=== PATIENT | female | born 2000 | race Caucasian/White ===

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

== ENCOUNTER 2023-03-29 09:00 | Emergency (ER) | payer OTHER, SELFPAY ==
--- NOTE | ~2023-03-29 | XR_ITS ---
EXAMINATION: XR tibia fibula RT 2V DATE: 03/29/2023 10:00 INDICATION: Persistent infiltrate right lower leg pain and bruising post fall one week prior TECHNIQUE: AP and lateral views of the right tibia and fibula were obtained. COMPARISON: None. FINDINGS: Alignment is normal. No fracture. Joint spaces are normal. Soft tissues are unremarkable. No ankle gilbert int effusion. IMPRESSION: 1. Negative right tibia/fibula radiographs. 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
[2023-03-29 09:23] VITALS: BP 112/77; PULSE 85; RESP 16; TEMP 36.4; O2SAT 100
--- NOTE | 2023-03-29 09:44 | ED.GENADULT ---
HPI - General Adult General Chief complaint: Extremity Injury, Lower Stated complaint: right leg injury Time Seen by Provider: 03/29/23 09:44 Source: patient, RN notes reviewed and old records reviewed Mode of arrival: ambulatory Limitations: no limitations History of Present Illness HPI narrative: 22-year-old female presents to the [facility] with complaints of right anterior lower leg pain since Sunday. Patient states that she was moving her child toddler bed when she tripped down a couple of stairs landing on her boyle. Bruising and a small abrasion noted Has been taken Tylenol Related Data Allergies Allergy/AdvReac Type Severity Reaction Status Date / Time cheese Allergy Unknown extreme Verified 03/14/23 14:31 constipation fluoxetine AdvReac Intermediate headaches Verified 03/14/23 14:31 Review of Systems Review of Systems: All systems reviewed & are unremarkable except as noted in HPI and below Constitutional: Constitutional: Reports no additional constitutional complaints Eyes: Eyes: Reports no additional eye complaints ENT: Reports system reviewed and no additional complaints, except as documented Cardiovascular: Cardiovascular: Reports no additional cardiovascular complaints, Denies chest pain and Denies dyspnea Respiratory: Respiratory: Reports no additional respiratory complaints, Denies chest congestion, Denies cough and Denies dyspnea Gastrointestinal: Gastrointestinal: Reports no additional gastrointestinal complaints, Denies abdominal pain, Denies nausea and Denies vomiting Musculoskeletal: Musculoskeletal: Reports as per HPI Integumentary/Breasts: Skin/Breast: Reports system reviewed and no additional complaints, except as docu Neurologic: Reports system reviewed and no additional complaints, except as documented Psychiatric: Psychiatric: Reports no additional psychiatric complaints Allergic/Immunologic: Allergic/Immunologic: Reports no additional allergic/immunologic complaints PMF Past Medical History Medical History Anxiety Depression Family History Family History Other No pertinent family history Social History Social History Smoking status: Never smoker Second hand tobacco smoke exposure: Yes Alcohol intake: never Substance use: never Spiritual care concerns: No Comments At the time of my signature, I reviewed and agree with the nursing past medical, surgical, social, and family history. There is no relevant family history pertinent to the patient complaint. Exam Const: General: cooperative, healthy appearing, comfortable, no acute distress, well developed, alert and well nourished Nutritional Appearance: well nourished Orientation/consciousness: patient oriented x3 Limitations: no limitations HENMT: Head: normal to inspection Ears: hearing grossly normal bilaterally and external ears normal Face/Nose/Sinus: Normal external nose present, Normal nares present, Normal nasal mucous membranes and turbinates present, normal facial exam and face symmetric Face and sinus: normal facial exam and face symmetric Eyes: General: appearance normal, both eyes and all related structures Alignment and Position: alignment normal Periorbital: periorbital findings normal Pupils: Equal, round and reactive pupils present EOM: EOMs intact bilaterally Neck: Neck: normal visual inspection, full ROM, no lymphadenopathy and no meningeal signs Chest: Chest palpation & inspection: normal inspection of the chest Resp: Effort & Inspection: normal respiratory effort and able to speak in complete sentences Cardio: Rate: regular rate Rhythm: regular rhythm Back/Spine/Pelvis: Cervical Spine: cervical ROM normal Skin: General skin exam: normal color and no rashes or lesions noted Lesions: no lesions Rashes: no rashes Oth
== END 2023-03-29 10:36 | disposition home or self-care (01) ==
PROVIDERS: Emergency Provider Nurse Practitioner; PCP Family Medicine
DX: S80.11XA Contusion of right lower leg, initial encounter (principal); W10.9XXA Fall (on) (from) unspecified stairs and steps, initial encounter
CPT/HCPCS: 73590; 99213; G0463

== ENCOUNTER 2023-09-15 19:15 | Emergency (ER) | payer OTHER, SELFPAY ==
--- NOTE | 2023-09-15 19:23 | ED.GENADULT ---
HPI - General Adult General Chief complaint: Back Pain/Injury Stated complaint: Back Injury Time Seen by Provider: 09/15/23 19:24 Source: patient, RN notes reviewed and old records reviewed Mode of arrival: ambulatory Limitations: no limitations History of Present Illness HPI narrative: 23-year-old female to [facility] for complaint of low back pain. 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 Patient went to emergency department and received an x-ray. Patient was discharged and advised to treat with [id number] medication. Patient states she was seen by work comp doctor on the and given a prescription for a muscle relaxer which would cost patient 180 dollars out of pocket. Patient states that she cannot afford the prescription and is requesting a different prescription. patient in no acute distress. Patient requesting work note. Related Data Allergies Allergy/AdvReac Type Severity Reaction Status Date / Time fluoxetine AdvReac Intermediate Abdominal Verified 09/15/23 19:41 Pain Review of Systems Review of Systems: All systems reviewed & are unremarkable except as noted in HPI and below Constitutional: Constitutional: Reports no additional constitutional complaints Eyes: Eyes: Reports no additional eye complaints ENT: Reports system reviewed and no additional complaints, except as documented Cardiovascular: Cardiovascular: Reports no additional cardiovascular complaints, Denies chest pain and Denies dyspnea Respiratory: Respiratory: Reports no additional respiratory complaints, Denies cough and Denies dyspnea Musculoskeletal: Musculoskeletal: Reports as per HPI and Reports back pain Neurologic: Reports system reviewed and no additional complaints, except as documented Psychiatric: Psychiatric: Reports no additional psychiatric complaints PMFSH Past Medical History Medical History Anxiety Depression Family History Family History Other No pertinent family history Social History Social History Smoking status: Never smoker Second hand tobacco smoke exposure: Yes Alcohol intake: never Substance use: never Spiritual care concerns: No Comments At the time of my signature, I reviewed and agree with the nursing past medical, surgical, social, and family history. There is no relevant family history pertinent to the patient complaint. Exam Const: General: cooperative, healthy appearing, comfortable, no acute distress, alert and well nourished Nutritional Appearance: well nourished Orientation/consciousness: patient oriented x3 Limitations: no limitations HENMT: Head: normal to inspection Ears: external ears normal Face/Nose/Sinus: Normal external nose present, Normal nares present, normal facial exam, No erythema and No edema Face and sinus: normal facial exam, no erythema and no edema Mouth: Yes Normal oral and palatal mucosa present Eyes: General: appearance normal, both eyes and all related structures Neck: Neck: normal visual inspection, full ROM and no meningeal signs Lymphatic: no lymphadenopathy noted and no lymphedema noted Chest: Chest palpation & inspection: normal inspection of the chest Resp: Effort & Inspection: normal respiratory effort and able to speak in complete sentences Cardio: Jugular venous distension: no JVD Rate: regular rate Rhythm: regular rhythm Back/Spine/Pelvis: Cervical Spine: cervical ROM normal Thoracic/Lumbar Spine: other ( Lumbar back pain with movement) Skin: General skin exam: normal color, no rashes or lesions noted and turgor normal Neuro: General: patient oriented x3, gait normal, moves all extremities and no meningeal signs Speech: normal speech Gait exam (Neuro): Normal gait present Extrem: General: normal to in
[2023-09-15 19:24] VITALS: BP 109/60; PULSE 110; RESP 16; TEMP 36.9; O2SAT 99
[2023-09-15] MEDS: KETOROLAC (*BKC) 60 MG/2 ML VIAL IM (19:47)
== END 2023-09-15 20:02 | disposition home or self-care (01) ==
PROVIDERS: Emergency Provider Nurse Practitioner Family; PCP Family Medicine
DX: S39.012A Strain of muscle, fascia and tendon of lower back, initial encounter (principal); X50.0XXA Overexertion from strenuous movement or load, initial encounter; Y99.0 Civilian activity done for income or pay
CPT/HCPCS: 96372; 99213; G0463; J1885

== ENCOUNTER 2024-01-26 10:15 | Emergency (ER) | payer OTHER, SELFPAY ==
[2024-01-26 10:20] VITALS: BP 139/65; PULSE 70; RESP 20; TEMP 36.4; O2SAT 100
--- NOTE | 2024-01-26 10:33 | ED.URI ---
HPI - URI/Sore Throat General Chief Complaint: Upper Respiratory Infection Stated Complaint: strep/flu symptoms History of Present Illness HPI Narrative: Patient presents with a 6 day history of bilateral ear pressure and discomfort sore throat nasal congestion and cough. Patient is taking [id number] cold and flu medications for her symptoms. Patient denies any fever no body aches no shortness of breath no chest pain. Patient does admit to vaping on a daily basis and states she does have a productive cough at times. Related Data Allergies Allergy/AdvReac Type Severity Reaction Status Date / Time fluoxetine AdvReac Intermediate Abdominal Verified 01/26/24 10:31 Pain Review of Systems Review of Systems: CONSTITUTIONAL: Denies chills, or sweats. Reports fever and generalized body aches EYES: Denies visual changes, redness, or discharge. ENT: Denies otalgia. Reports nasal congestion runny nose and sore throat CARDIOVASCULAR: Denies chest pain, palpitations, or edema. RESPIRATORY: Denies dyspnea. Reports occasional cough GASTROINTESTINAL: Denies abdominal pain, nausea, vomiting, or diarrhea. GENITOURINARY: Denies dysuria or hematuria. SKIN: Denies rash or itching. MUSCULOSKELETAL: Denies back pain, joint pain, or myalgia. Reports generalized body aches NEUROLOGIC: Denies headache, numbness, or weakness. PSYCHIATRIC: Denies anxiety or depression. PMFSH Past Medical History Medical History Anxiety Depression Family History Family History Other No pertinent family history Social History Social History Smoking status: Never smoker Second hand tobacco smoke exposure: Yes Alcohol intake: never Substance use: never Spiritual care concerns: No Comments At time of signature, agree with nursing past medical, surgical, social and family history. There is no relevant family history pertinent to the presenting complaint Exam Narrative: The patient is a well-developed, well-nourished in no acute distress. SKIN: Skin is warm and dry without erythema, swelling or exudate. There is good turgor. No tenting. HEAD: Atraumatic. Normocephalic. No temporal or scalp tenderness. EYES: Moist and bright. Sclera and conjunctivae normal. No discharge. PERRLA. Extraocular motions intact. Gross visual acuity intact. EARS: Pinna is normal shape and contour. Clear external auditory canals. Left TM cloudy with moderate erythema to canal right TM dull no erythema to canal. Bilateral cerumen noted no gross hearing deficit. NOSE: pink, moist mucosa with good air movement. Clear rhinorrhea without nasal flaring. Septum midline. Mouth: moist mucous membranes. THROAT; mild erythema noted to posterior oropharynx with moderate postnasal drainage. Without exudate or ulceration.. Uvula midline. Normal movement of soft palate. NECK: Supple and nontender with full range of motion without discomfort. No meningeal signs. LUNGS: Equal and bilateral breath sounds without wheezes, rales or rhonchi. CHEST: The chest wall is without retractions or use of accessory muscles. HEART: Has a regular rate and rhythm without murmur, gallops, click or rub. ABDOMEN: Soft, nontender with positive active bowel sounds. No rebound tenderness. EXTREMITIES: Without cyanosis, clubbing or edema. Equal 2+ distal pulses and 2 second capillary refill noted. NEUROLOGIC: alert, active, . The patient moves all extremities with normal muscle strength. Normal muscle tone is noted. Normal coordination is noted. NO focal neurological findings noted. Course Course Level of Care: Express Care Visit Discharge Plan Discharge Clinical Impression: Otitis media of right ear, Upper respiratory infection Patient Disposition: Home, Self-Care Condition: Stable Instructions: Antibiotic Form Additional Instructions: *Throw away your current toothbrush and begin using a new toothbrush in 48 hours in order to prevent re-infection. If anyone else's toothbrush is stored near yours, they should also throw away their current toothbrush and begin using a new one. *Sanitize all reusable water bottles. *Do not share items with others. *Wash your hands often. Supportive care/Soothing measures/Pain relief: *Avoid cigarette smoke (including secondhand smoke) *Avoid acidic foods and beverages *Eat a soft diet for the next 3-4 days *Salt water gargles may alleviate some of the throat discomfort. Most recipes call for ? to ? teaspoon of salt per 8 ounces (approximately 240 mL) of warm water. *You can take tylenol or ibuprofen per the package instructions for pain/fever. *Sipping cold or warm beverages (eg, tea with honey or lemon) *Eat cold or frozen desserts (eg, ice cream, popsicles) *Sucking on ice *Sucking on hard candy Viruses are everywhere and can spread like wildfire. Sx can last up to 3-4 weeks. Treatment is aimed toward your specific symptoms. You must treat your symptoms in order to feel better while the virus runs it's course. Increase fluids especially water. Do not share items with others. You can take Tylenol or ibuprofen per the package instructions for pain/fever. Wash your hands as often as possible. Purchase and begin using an over the counter antihistamine/decongestant combo such as Zyrtec D, Linda D, Claritin D as well as Flonase nasal spray per the package instructions. Salt water gargles may alleviate some of your throat discomfort. Go to the ER if your symptoms become worse of if ANY new symptoms develop Prescriptions: New albuterol sulfate 90 mcg/actuation HFA aerosol inhaler 2 puff inhalation QID PRN (Reason: shortness of breath or wheezing) 30 Days Qty: 8.5 0RF fluticasone propionate 50 mcg/actuation spray,suspension 2 spray NASAL DAILY 14 Days Qty: 9.9 0RF Rx Instructions: administer into each nostril azithromycin [Zithromax Z-David] 250 mg tablet See Rx Instructions .ROUTE .COMPLEX Qty: 6 0RF Rx Instructions: take 500 mg today (day 1), then 250 mg for 4 days (days 2-5) Follow-up/Referrals: Gilberto Dasilva MD [Primary Care Provider] - Stand Alone Forms: Work/School Release IP
[2024-01-26 10:47] LABS: EDSTREPNEGPOS1 Negative (Negative)
[2024-01-26 10:48] LABS: EDCOVIDSCREEN Negative (Negative)
[2024-01-26 10:49] LABS: EDINFLUASCREEN Negative (Negative); EDINFLUBSCREEN Negative (Negative)
== END 2024-01-26 10:58 | disposition home or self-care (01) ==
PROVIDERS: Emergency Provider Nurse Practitioner Family; PCP Family Medicine
DX: H66.91 Otitis media, unspecified, right ear (principal); J06.9 Acute upper respiratory infection, unspecified; Z20.822 Contact with and (suspected) exposure to COVID-19; F41.9 Anxiety disorder, unspecified; F32.A Depression, unspecified
CPT/HCPCS: 87081; 87426; 87804; 87880; 99213; G0463